=== PATIENT | male | born 1980 | race Caucasian/White ===

== ENCOUNTER → 2016-10-01 | Emergency (ER) | payer OTHER ==
[~2016-10-01] VITALS: Ht 182.9 cm; Wt 72.9 kg
[~2016-10-01] MED LIST: HYDROmorphone 1 MG/ML (DILAUDID) SYRINGE IM ONE; KETOROLAC 60 MG/2 ML (TORADOL) VIAL IM ONE; PROMETHAZINE 25 MG/ML (PHENERGAN) 1 ML VIAL IM ONE
[2016-10-01 09:53] LABS: MEAN CORPUSCULAR HEMOGLOBIN 28.4 PG (26.0-34.0); MEAN CORPUSCULAR HGB CONC 33.2 g/dL (31.0-37.0); MEAN CORPUSCULAR VOLUME 85 FL (80-100); MEAN PLATELET VOLUME 10.9 FL (6.0-9.5); PLATELET COUNT 261 10^3uL (150-450); WHITE BLOOD COUNT 11.02 10^3uL (4.0-11.0)
--- NOTE | 2016-10-01 10:07 | NUR ---
Patient rounds, returned from radiology. Denies needs. Reports no change from admission.
[2016-10-01 10:08] LABS: ALBUMIN 4.4 g/dL (3.4-5.0); ANION GAP 14.9 MEQ/L (3-15); CALCULATED IONIZED CALCIUM 3.9 mg/dL (3.8-4.6); TOTAL PROTEIN 7.5 g/dL (6.4-8.5)
[2016-10-01 10:12] LABS: BAND NEUTROPHILS % 1 % (0-6); EOSINOPHILS % 1 % (0-4); LYMPHOCYTES # 2.3 #; MONOCYTES # 1.7 #; MONOCYTES % 15 % (3-11); SEGMENTED NEUTROPHILS % 62 % (51-67)
[2016-10-01 10:13] LABS: RBC MORPH NORMAL (NORMAL); TOTAL CELLS COUNTED 100
[2016-10-01 11:23] VITALS: BP 130/81
== END | disposition home or self-care (01) ==
LOC: EDUNIT# 09:07 → ED 09:09
DX: M84.48XA Pathological fracture, other site, initial encounter for fracture (principal); R07.89 Other chest pain
CPT/HCPCS: 36415; 71010; 71100; 80053; 85025; 96372; 99282; J1170; J1885; J2550; 99283